=== PATIENT | male | born 1975 | race Caucasian/White ===

== ENCOUNTER 2018-12-27 03:34 | Emergency (ER) | payer SELFPAY ==
[~2018-12-27] VITALS: Ht 182.9 cm; Wt 109.1 kg
[2018-12-27 03:41] VITALS: Ht 182.9 cm; Wt 109.1 kg
[2018-12-27] MEDS ORDERED: ZANTAC300 MG PO (03:43)
[2018-12-27 04:08] LABS: HEMATOCRIT 46.6 % (42.0-54.0); HEMOGLOBIN 16.2 g/dL (13.5-17.5); MCH 30.2 pg (26.0-34.0); MCHC 34.8 g/dL (31.0-37.0); MCV 86.9 fL (80.0-100.0); MEAN PLATELET VOLUME 10.6 fL (7.4-10.4); PLATELET COUNT 215 10x3/uL (130-400); RBC 5.36 10x6/uL (4.20-6.10); RDW 13.8 % (11.5-14.5); WBC 10.7 10x3/uL (4.8-10.8)
[2018-12-27 04:30] LABS: APPEARANCE CLEAR (CLEAR); COLOR YELLOW (YELLOW); SPECIFIC GRAVITY 1.015 (1.005-1.020)
[2018-12-27 04:31] LABS: BILIRUBIN NEGATIVE (NEGATIVE); GLUCOSE NEGATIVE (NEGATIVE); KETONE NEGATIVE (NEGATIVE); NITRITE NEGATIVE (NEGATIVE); PROTEIN NEGATIVE (NEGATIVE); UROBILINOGEN NORMAL (NORMAL)
[2018-12-27 04:50] LABS: ALBUMIN 3.9 g/dL (3.4-5.0); ANION GAP 12.5 mmol/L (8-16); BILIRUBIN - TOTAL 0.68 mg/dL (0.2-1.3); CALCIUM 9.1 mg/dL (8.5-10.1); CARBON DIOXIDE 28.5 mmol/L (21.0-32.0); CREATININE - SERUM 1.3 mg/dL (0.6-1.3); PROTEIN - SERUM 7.8 g/dL (6.4-8.2)
[2018-12-27 05:31] LABS: EOSINOPHILS 1 % (0-7); LYMPHOCYTES 24 % (15-50); MONOCYTES 2 % (2-11); NEUTROPHILS 73 % (40-80); PLATELET ESTIMATE NORMAL
[2018-12-27 06:36] VITALS: BP 148/94
[2019-01-04 10:22] VITALS: Ht 182.9 cm; Wt 109.1 kg
== END 2018-12-27 06:36 | disposition home or self-care (01) ==
LOC: D.ER 03:34
PROVIDERS: Family Medicine
DX: K40.90 Unilateral inguinal hernia, without obstruction or gangrene, not specified as recurrent (principal); E87.6 Hypokalemia; F17.210 Nicotine dependence, cigarettes, uncomplicated

== ENCOUNTER 2019-01-04 09:12 | Day surgery (SDC) | payer SELFPAY ==
[~2019-01-04] VITALS: Ht 182.9 cm; Wt 107.5 kg
[~2019-01-04 09:12] MED LIST: ZANTAC300 MG PO
[2019-01-04 10:22] VITALS: BP 136/77; Ht 182.9 cm; Wt 107.5 kg
[2019-01-04] MEDS ORDERED: HYDROCODON-ACE1 EAC7 PO (11:19)
[2019-01-04] MEDS ORDERED: FLOMAX0.4 MG PO (11:21)
[2019-01-04] MEDS ORDERED: FUROSEMIDE20 MG PO (11:21)
--- NOTE | 2019-01-04 17:18 | NUR ---
1410 MEDICATED FOR PAIN AND FLOMAX ORDERED. 1430 PT WAS NOT SURE A NORCO 5MG WAS GOING TO COVER IT. PAIN LEVEL A 7-8 LEVEL OF PAIN. 1500 VOIDED WITHOUT DIFFICULTY. MODERATE AMT. INSTRUCTIONS GIVEN TO PT. DR MUNIZ CALLED ABOUT PAIN MEDICATION CONCERNS. NO ORDERS GIVEN. 1605 PT D/C HOME IN W/C
== END 2019-01-04 16:05 | disposition home or self-care (01) ==
LOC: D.OPS 09:12 → D.PAN 11:15 → D.OPS 11:15
PROVIDERS: ATTEND Surgery
DX: K40.30 Unilateral inguinal hernia, with obstruction, without gangrene, not specified as recurrent (principal)